=== PATIENT | female | born 1935 | race Caucasian/White ===

== ENCOUNTER → 2018-04-27 11:10 | Outpatient (CLI) | payer MEDICARE, OTHER, SELFPAY ==
[2018-04-27 14:32] LABS: Folate 12.9 ng/mL (2.76-20.0)
[2018-04-27 15:05] LABS: Vitamin B12 468 pg/mL (239-931)
== END ==
PROVIDERS: Family Provider Internal Medicine; PCP Internal Medicine; Visit Provider Psychiatry & Neurology Psychiatry
DX: G31.09 Other frontotemporal neurocognitive disorder (principal); F02.81 Dementia in other diseases classified elsewhere, unspecified severity, with behavioral disturbance; F32.9 Major depressive disorder, single episode, unspecified
CPT/HCPCS: 36415; 82607; 82746